=== PATIENT | male | born 1955 | race Caucasian/White ===

== ENCOUNTER → 2017-09-25 | Outpatient (CLI) | payer OTHER | END | disposition home or self-care (01) | LOC: KCIC MRI 15:59 | DX: G20 Parkinson's disease (principal); R41.3 Other amnesia | CPT/HCPCS: 70551 ==

== ENCOUNTER → 2017-11-05 | Outpatient (CLI) | payer OTHER ==
[~2017-11-05] MED LIST: CARB1TAB2 PO; METO25TA4 PO
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
== END | disposition home or self-care (01) ==
LOC: PNCL 12:21
PROVIDERS: ATTEND Anesthesiology
DX: M79.604 Pain in right leg (principal); M54.5 Low back pain; M19.90 Unspecified osteoarthritis, unspecified site; I38 Endocarditis, valve unspecified; Z95.2 Presence of prosthetic heart valve
CPT/HCPCS: G0463

== ENCOUNTER → 2017-11-07 | Outpatient (CLI) | payer OTHER ==
[~2017-11-07] MED LIST changes: +REGADENOSON 0.4 MG/5 ML DISP.SYRIN. IV ONE
--- NOTE | 2017-11-07 09:40 | CARD ---
MR#: [id number] Date of Study: 11/07/2017 Ordering Physician: LULU DELGADO, Referring Physician: LULU DELGADO, Tech: Melody Dominguez APPROVED REPORT EXAM: Two-dimensional and M-mode echocardiogram with Doppler and color Doppler. Other Information Quality : GoodHR: 39bpm Rhythm : NSR INDICATION AVR December 2010 RISK FACTORS Previous Smoker 2D DIMENSIONS RVDd2.7 (2.9-3.5cm)Left Atrium(2D)4.2 (1.6-4.0cm) IVSd1.1 (0.7-1.1cm)Aortic Root(2D)2.9 (2.0-3.7cm) LVDd5.6 (3.9-5.9cm)LVOT Diameter2.0 (1.8-2.4cm) PWd1.1 (0.7-1.1cm)LVDs3.8 (2.5-4.0cm) FS (%) 32.4 %SV90.7 ml LVEF(%)60.1 (>50%) Aortic Valve AoV Peak Lucas.196.7cm/sAoV VTI53.5cm AO Peak GR.15.5mmHgLVOT Peak Lucas.79.9cm/s AO Mean GR.9mmHgAVA (VMAX)1.30cm2 Mitral Valve MV E Rgtcduie36.6cm/sMV DECEL UKWE466cd MV A Brehkcvf48.1cm/sE/A Ratio2.4 Pulmonary Valve PV Peak Ihzvgttz49.0cm/s Tricuspid Valve TR P. Hofnnpjw443uf/sRAP HZBABDCX7mcUh TR Peak Gr.69keJxQTGP87nrMp Pulmonary Vein S1 Pbjxsikq99.8cm/sD2 Thhnvyoa25.3cm/s LEFT VENTRICLE The left ventricle is normal size. There is normal left ventricular wall thickness. The left ventricu lar systolic function is normal and the ejection fraction is within normal range. The Ejection Fracti on is 55-60%. There is normal LV segmental wall motion. Transmitral Doppler flow pattern is Grade I-a bnormal relaxation pattern. RIGHT VENTRICLE The right ventricle is normal size. There is normal right ventricular wall thickness. The right ventr icular systolic function is normal. ATRIA The left atrium size is normal. The right atrium size is normal. The interatrial septum is intact wit h no evidence for an atrial septal defect or patent foramen ovale as noted on 2-D or Doppler imaging. AORTIC VALVE Aortic Valve Replacement December 2010. Per patient porcine valve. Doppler and Color Flow revealed no significant aortic regurgitation. MG 9 mmHg. Bioprosthetic AVR appears well seated. No significant s tenosis. MITRAL VALVE The mitral valve is thickened but opens well. There is no mitral valve stenosis. Doppler and Color-fl ow revealed trace mitral regurgitation. TRICUSPID VALVE The tricuspid valve leaflets are thickened , but open well. Doppler and Color Flow revealed trace tri cuspid regurgitation. RVSP 30 mm Hg There is no tricuspid valve stenosis. PULMONIC VALVE Doppler and Color Flow revealed trace pulmonic valvular regurgitation. There is no pulmonic valvular stenosis. GREAT VESSELS The aortic root is normal in size. Normal pulmonary venous flow (Doppler). The IVC is normal in size and collapses >50% with inspiration. PERICARDIAL EFFUSION There is no evidence of significant pericardial effusion. Critical Notification Critical Value: No <Conclusion> The left ventricular systolic function is normal and the ejection fraction is within normal range. Th e Ejection Fraction is 55-60%. There is normal LV segmental wall motion. MG 9 mmHg. Bioprosthetic AVR appears well seated. No significant stenosis. Signed by : Kirit Ahmadi, Electronically Approved : 11/07/2017 09:39:26
--- NOTE | 2017-11-07 13:51 | RAD ---
MR#: [id number] Date of Study: 11/07/2017 Ordering Physician: LULU ALDRICH, Referring Physician: DANUTA OTOOLE Tech: RT Yulia (R) (N) APPROVED REPORT Test Type: Pharmacological Stress Nurse/Tech: Ginna Mascorro RN Test Indications: dyspnea Cardiac History: Aortic valve replacement, x-smoker, CVA Medications: See Electronic Medical Record Medical History: See Electronic Medical Record Resting ECG: SB Resting Heart Rate: 49 bpm Resting Blood Pressure: 104/61mmHg Pretest Chest Pain: None Nurse/Tech Notes patient lethargic. HR low 40's. Spoke with Dr. Aldrich. Exam postponed one hour. Consent: The procedure was explained to the patient in lay terms. Informed consent was witnessed. Chavez eout was entered into [employer]. History and Stress Test performed by Ginna Mascorro RN Pharm. Details Pharmacologic stress testing was performed using 0.4mg per 5ml of regadenoson given intravenously ove r 7-10 seconds. Stress Symptoms dyspnea. no chest pain. Pt tolerated the test well POST EXERCISE Reason for Termination: Infusion complete Max HR: 75 bpm Max Blood Pressure: 111/59mmHg Blood Pressure response to exercise: Normal blood pressure response during stress. Heart Rate response to exercise: normal response Chest Pain: No. Arrhythmia: No. ST Change: No. INTERPRETATION Stress EKG Conclusion: Baseline EKG showed sinus bradycardia. No ischemic changes at peak stress. N o arrhythmias. Imaging Protocol IMAGE PROTOCOL: Rest Tc-99m/stress Tc-99m 1 day Rest: Stress: Viability: Radiopharm.Tc99m WccncuwtbJu80z Sestamibi Dose11.3mCi 34.4mCi Duration 13min. 13min. Img Date 11/07/2017 11/07/2017 Inj-Img Mala49uxm. 60min. Rest Admin Site:IV - Right AntecubitalAdministrator:RT Yulia (R)(N) Stress Admin Site: IV - Right AntecubitalAdministrator: RT Yulia (R)(N) STRESS DATA End Diast. Vol.140.0mlLVEDV index BSA72.0ml End Syst. Vol.57.0mlLVESV index BSA29.0ml Myocardial Pgcr297.0gEject. Mmaoywos85.0% Stress Scores Regional WT3.00Summed WT16.00 Regional WM0.00Summed WM16.00 Study quality was good. Left Ventricular size was Normal at Rest and Stress. Lung uptake was . Left Ventricular ejection fraction is 59%. The rest and stress images show normal perfusion, normal contraction and thickening. LV Perf. Quant 17 Seg. SSS0.00 17 Seg. SRS0.00 17 Seg. SDS0.00 Stress Defect Extent (% LAD)0.00Rest Defect Extent (% LAD)0.00Rev. Defect Extent (% LAD)0.00 Stress Defect Extent (% LCX) 0.00Rest Defect Extent (% LCX)0.00Rev. Defect Extent (% LCX)0.00 Stress Defect Extent (% RCA)0.00Rest Defect Extent (% RCA)0.00Rev. Defect Extent (% RCA)0.00 Stress Defect Extent (% GENESIS)0.00Rest Defect Extent (% GENESIS)0.00Rev. Defect Extent (% GENESIS)0.00 Conclusion 1. Regadenoson cardioisotope stress test did not show any evidence of ischemia or infarct. 2. Normal left ventricular systolic function with ejection fraction calculated at 59%. 3. Low risk for cardiac events. Signed by : Ashwin Egan, Electronically Approved : 11/07/2017 13:51:07
== END | disposition home or self-care (01) ==
LOC: ECHO 07:32
PROVIDERS: ATTEND Internal Medicine Cardiovascular Disease
DX: Z48.812 Encounter for surgical aftercare following surgery on the circulatory system (principal); M19.90 Unspecified osteoarthritis, unspecified site; Z95.2 Presence of prosthetic heart valve; Z87.891 Personal history of nicotine dependence; Z86.73 Personal history of transient ischemic attack (TIA), and cerebral infarction without residual deficits
CPT/HCPCS: 78452; 93017; 93306; 96374; 96375; 96376; A9500; J2785

== ENCOUNTER → 2017-11-19 | Outpatient (CLI) | payer OTHER ==
[~2017-11-19] MED LIST changes: +IOHEXOL 180 MG/ML 10 ML VIAL. ONE; +LIDOCAINE 2% PF 2ML VIAL. ONE; -REGADENOSON 0.4 MG/5 ML DISP.SYRIN. IV ONE; +methylPREDNISolone ACETATE 40 MG/ML VIAL. ONE; +methylPREDNISolone ACETATE 80 MG/ML VIAL. ONE
--- NOTE | 2017-11-20 00:13 | PAIN ---
DATE OF SERVICE: 11/19/2017 PROGRESS NOTE FOR PAIN CLINIC DIAGNOSES: Lumbar radiculopathy with lumbar degenerative disk disease and lumbar spinal stenosis. HISTORY OF PRESENT ILLNESS: The patient is a 62-year-old male who returns for followup status post previous initial evaluation and preauthorization for lumbar epidural steroid injection. The patient has obtained that we would like to proceed today, with still significant pain in the low back and right lower extremity, mostly lateral anterior thigh and anterior medial knee on the right side. The patient reports it is becoming more constant pain, is stabbing, aching, sharp and shooting, rates an 8 on a scale of 10 at its worst, least and average and is an 8 today. The patient reports no new motor or sensory deficits and no new bowel or bladder incontinence or other complaints. PHYSICAL EXAMINATION: VITAL SIGNS: The patient's blood pressure is 113/70, pulse 60, respirations 18, temperature 98.2 degrees Fahrenheit, height is 5 feet 10 inches and weight is 161 pounds. GENERAL: The patient is awake, alert, oriented, appropriate and very pleasant demeanor. HEENT: Head shows normocephalic and atraumatic. Extraocular movements are intact and symmetrical. Oral cavity, mucous membranes are moist and pink. Dentition is intact. NECK: Shows anterior throat supple without palpable lymphadenopathy noted. Swallow reflex symmetrical. CHEST: Shows normal with inspection. Breath sounds clear to auscultation bilaterally. HEART: Shows S1 and S2 clear. No murmurs auscultated. ABDOMEN: Soft, nontender and nondistended. No palpable organomegaly is noted. No rebound or guarding demonstrated. BACK: Shows spine grossly in the midline. Normal appearing thoracic kyphosis and some slight flattening of the lumbar lordotic curvature. Lumbar paraspinous muscle shows symmetrical on inspection, on palpation shows some moderate tenderness but only diffusely bilaterally in the middle and lower distribution of the paraspinous muscles without radiation. The patient has good rotational motion of the lumbar spine both laterally as well as extension and flexion without significant pain reported. EXTREMITIES: The patient's lower extremities showed deep tendon reflexes 1+ in the patellar and tendo calcaneus tendons. Motor exam is strong with approximately 4 on a scale of 5 right dorsiflexion, extension, 5/5 on the left. Peripheral pulses are 1+ posterior tibia. No peripheral edema is noted. Options were discussed with the patient. The patient's old chart was reviewed as well as his current medication regimen updated. Current review of systems updated today as well. We will proceed with a lumbar epidural steroid injection today with fluoroscopic guidance. Risks were again discussed including, but not limited to bleeding, infection, possibility of epidural hematoma, subsequent neurologic compromise, dural puncture, headaches, spinal cord and/or nerve damage, side effects of steroid medication and poor results regarding pain control. The patient understands and wished to proceed. The patient will return to the clinic in approximately 2 weeks for followup, was counseled as to return appointment, activity level and side effects to be aware of. DIAGNOSIS: Lumbar radiculopathy with lumbar degenerative disk disease and lumbar spinal stenosis. PROCEDURE: Lumbar epidural steroid injection, translaminar approach at the L3-L4 level using C-arm fluoroscopic guidance under sterile prep and drape using local anesthetic. MEDICATION INJECTED: A total of 120 mg Depo-Medrol plus 10 mL of preservative-free normal saline and 2 mL of Isovue for contrast. CONDITION AT DISCHARGE: Stable. The patient tolerated the procedure well and had no complications. GRACE KEENE MD DR: LINA/vera JOB#: [id number] / [id number]
== END | disposition home or self-care (01) ==
LOC: PNCL 10:47
PROVIDERS: ATTEND Anesthesiology
DX: M51.16 Intervertebral disc disorders with radiculopathy, lumbar region (principal); M48.061 Spinal stenosis, lumbar region without neurogenic claudication
CPT/HCPCS: 62323; J1030; J1040; J2001; Q9965

== ENCOUNTER → 2017-12-05 | Outpatient (CLI) | payer OTHER ==
[~2017-12-05] MED LIST changes: -IOHEXOL 180 MG/ML 10 ML VIAL. ONE; -LIDOCAINE 2% PF 2ML VIAL. ONE; -methylPREDNISolone ACETATE 40 MG/ML VIAL. ONE; -methylPREDNISolone ACETATE 80 MG/ML VIAL. ONE
--- NOTE | 2017-12-06 05:10 | PAIN ---
DATE OF SERVICE: 12/05/2017 DIAGNOSES: Lumbar radiculopathy with lumbar spinal stenosis and lumbar degenerative disk disease. HISTORY OF PRESENT ILLNESS: The patient is a 62-year-old male who returns for followup status post lumbar epidural steroid injection x 1. The patient returns reporting about 60% improvement in the low back and left lower extremity, still with significant pain radiating in the lower extremities. Initially, the right side was worse, but now the right side is getting much better. The patient reports it is about 90% better, but the left side is still significantly only about 30% overall in the left leg, but overall about 60% total for about the first 2-1/2 weeks since his injection. The patient reports the pain is still across the low back into the posterior gluteus, posterior thigh and lateral anterior thigh, anterior medial thigh and medial knee, again more on the left side now than the right. The patient reports it is sharp, shooting, cramping, stabbing, becoming more constant, more severe with time, worse with walking, standing and change in positions. If he was sitting for more than about 20-30 minutes, the pain would return. Better with lying down, does not awaken him from sleep at night. The patient reports his pain is 9 on a scale of 10 is worst, 8 on average and 7 at its least and is a 7 today. The patient reports no new motor or sensory deficits. No new bowel or bladder incontinence. Initially, he was getting around better, walking better, doing activities at home better and traveling with much greater ease and comfort, but now the pain is returning as noted. Again, the right leg is doing much better, but the left leg is still with significant pain mostly in the anterior thigh, posterior gluteus, anterior medial at his thigh and medial knee in L3-L4 dermatomal distribution. PHYSICAL EXAMINATION: VITAL SIGNS: Blood pressure 113/75, pulse 67, respirations are 18, temperature is 96.3 degrees Fahrenheit, height is 5 feet 10 inches and weight is 165 pounds. General: He is awake, alert, oriented, appropriate and very pleasant demeanor. HEENT: Head shows normocephalic and atraumatic. Extraocular movements are intact and symmetrical. Oral cavity: Mucous membranes moist and pink. Dentition is intact. NECK: Shows anterior throat supple without palpable lymphadenopathy noted. Swallow reflex symmetrical. CHEST: Shows normal with inspection. Breath sounds clear to auscultation bilaterally. HEART: Shows S1 and S2 clear. No murmurs auscultated. ABDOMEN: Soft, nontender and nondistended. No palpable organomegaly is noted. No rebound or guarding demonstrated. BACK: The patient's back shows spine grossly in the midline. Slight exaggeration of thoracic kyphosis and minor flattening of lumbar lordotic curvature. Lumbar paraspinous muscle shows symmetrical on inspection. On palpation, shows some moderate tenderness diffusely, but without radiation. No tenderness over the sacrum or sacroiliac regions. LOWER EXTREMITIES: Show deep tendon reflexes 1+ patellar and tendo-calcaneus tendons. Motor exam is approximately 4 on a scale of 5 at the ankles bilaterally and 5/5 with quadriceps and hamstring flexion bilaterally. Peripheral pulses are 1+ posterior tibia. No peripheral edema is noted. Options were discussed with the patient. The patient's old chart was reviewed as well as his current medication regimen updated. Current review of systems updated today as well and we will preauthorize for a second lumbar epidural steroid injections as he was doing better after his first injection by about 60% overall. Note, the pain in the right side much better, but the left side is still significantly painful in an L3-L4 dermatomal distribution. With continued therapy and exercises, we will encourage him to maintain his exercises as he has been doing stretching especially and we will have him return for second lumbar epidural steroid injection once that is improved. GRACE KEENE MD DR: LINA/vera JOB#: [id number] / [id number]
== END | disposition home or self-care (01) ==
LOC: PNCL 13:50
PROVIDERS: ATTEND Anesthesiology
DX: M51.16 Intervertebral disc disorders with radiculopathy, lumbar region (principal); M48.061 Spinal stenosis, lumbar region without neurogenic claudication
CPT/HCPCS: 99212

== ENCOUNTER → 2017-12-17 | Outpatient (CLI) | payer OTHER ==
[~2017-12-17] MED LIST changes: +IOHEXOL 180 MG/ML 10 ML VIAL. ONE; +LIDOCAINE 1% PF 2 ML VIAL. ONE; +methylPREDNISolone ACETATE 40 MG/ML VIAL. ONE; +methylPREDNISolone ACETATE 80 MG/ML VIAL. ONE
--- NOTE | 2017-12-17 19:43 | PAIN ---
DATE OF SERVICE: 12/17/2017 DIAGNOSES: Lumbar radiculopathy with lumbar spinal stenosis, lumbar degenerative disk disease. HISTORY OF PRESENT ILLNESS: The patient is a 62-year-old male who returns for followup status post lumbar epidural steroid injection x 1. The patient did well with his first injection about 60% improvement, now returns after preauthorization for a second injection with pain still complaining the low back and into the left greater than right lower extremity. The patient reports no new motor or sensory deficits, no new bowel or bladder incontinence. The patient reports the pain is a 10 on a scale of 10 at its worst, 8 on average, 7 at its least and is a 7 today. The patient reports it is a stabbing, aching, sharp, shooting, constant, becoming more unbearable, worse with walking, standing, changing positions, better with sitting or lying down, generally does not awaken him from sleep at night, feels better when he is lying down. The patient reports the pain is radiating to the right and left thigh as well as the anterior medial thigh on the left side. PHYSICAL EXAMINATION: VITAL SIGNS: The patient's blood pressure 114/73, pulse is 61, respirations 18, temperature is 97.7 degrees Fahrenheit, height is 5 feet 10 inches, weight 168 pounds. GENERAL: The patient is awake, alert, oriented, appropriate, very pleasant demeanor. HEENT: Head is normocephalic, atraumatic. Extraocular movements intact and symmetrical. Oral cavity: Mucous membranes moist and pink. Dentition is intact. NECK: Shows anterior throat supple without palpable lymphadenopathy noted. Swallow reflex is symmetrical. CHEST: Shows normal with inspection. Breath sounds are clear to auscultation bilaterally. HEART: Shows S1, S2 clear. No murmurs auscultated. ABDOMEN: Soft, nontender, nondistended. No palpable organomegaly is noted. No rebound or guarding demonstrated. BACK: Shows spine grossly in the midline. Normal appearing thoracic kyphosis and lumbar lordotic curvature. Lumbar paraspinous muscle shows symmetrical on inspection. On palpation shows some moderate tenderness diffusely bilaterally, but only diffusely in the low lumbar distribution without radiation. No atrophy, no hypertrophy, no trigger points. The patient has good rotational motion of lumbar spine, both laterally as well as extension and flexion without difficulty. EXTREMITIES: Lower extremities show deep tendon reflexes 1+ in the patellar and tendo calcaneus tendons. Motor exam is strong with approximately 4 on a scale of 5 at the bilateral ankles and 5/5 quadriceps and hamstring flexion and symmetrical. Peripheral pulses are 1+ posterior tibial. No peripheral edema is noted bilaterally. PLAN: Options were discussed with the patient. The patient's old chart reviewed as his current medication regimen updated. Current review of systems updated today as well. We will proceed with a second in the series of lumbar epidural steroid injection today with fluoroscopic guidance. Risks were again discussed including, but not limited to bleeding, infection, possibility of epidural hematoma, subsequent neurological compromise, dural puncture, headaches, spinal cord and/or nerve damage, side effects of steroid medication and poor results regarding pain control. The patient understands and wished to proceed. The patient will return to clinic in approximately 2 weeks for followup. He was counseled on return appointment, activity level and side effects to be aware of. DIAGNOSES: Lumbar radiculopathy with lumbar spinal stenosis, lumbar degenerative disk disease. PROCEDURE: Lumbar epidural steroid injection, translaminar approach at L3-L4 level using C-arm fluoroscopic guidance under sterile prep and drape using local anesthetic. MEDICATION INJECTED: A total of 120 mg Depo-Medrol plus 10 mL of preservative-free normal saline and 2 mL of Isovue for contrast. CONDITION AT DISCHARGE: Stable. The patient tolerated the procedure well, had no complications. GRACE KEENE MD DR: LINA/vera JOB#: [id number] / [id number]
== END | disposition home or self-care (01) ==
LOC: PNCL 07:52
PROVIDERS: ATTEND Anesthesiology
DX: M51.16 Intervertebral disc disorders with radiculopathy, lumbar region (principal); M48.061 Spinal stenosis, lumbar region without neurogenic claudication
CPT/HCPCS: 62323; J1030; J1040; Q9965

== ENCOUNTER → 2017-12-31 | Outpatient (CLI) | payer OTHER ==
[~2017-12-31] MED LIST changes: -IOHEXOL 180 MG/ML 10 ML VIAL. ONE; -LIDOCAINE 1% PF 2 ML VIAL. ONE; -methylPREDNISolone ACETATE 40 MG/ML VIAL. ONE; -methylPREDNISolone ACETATE 80 MG/ML VIAL. ONE
--- NOTE | 2018-01-01 00:05 | PAIN ---
DATE OF SERVICE: 12/31/2017 PROGRESS NOTE FOR PAIN CLINIC DIAGNOSES: Lumbar radiculopathy with lumbar spinal stenosis and lumbar degenerative disk disease. HISTORY OF PRESENT ILLNESS: The patient is a 62-year-old male who returns for followup status post lumbar epidural steroid injection x 2. The patient returns reports about 75% improvement after the last injection lasting for about 3 weeks now. The patient reports he has been returning now, is more like 50% improvement today but for the first 3 weeks, he was doing much better, about 75%. The patient reports he has been walking with greater ease and comfort, standing for greater times, working with greater ability without as much pain in his back and leg. The patient reports the left leg still with some significant radiation into the lateral anterior thigh, lateral anterior medial thigh, medial knee and medial lower leg but again only with extended standing and walking. The patient reports the pain is 8-9 on a scale of 10 at its worst, 6 on average, 5 at its least and is a 5 today. The patient reports it is aching, sharp, tight, shooting, stabbing, cramping, sometimes unbearable but mostly on and off in intensity, better with sitting or lying down. It awakens him from sleep occasionally, about every 5 hours or so at the worst. The patient reports no new motor or sensory deficits and no new bowel or bladder incontinence or other complaints, doing much better and is quite pleased with his progress thus far, but still some significant radicular pain on the left side. PHYSICAL EXAMINATION: VITAL SIGNS: Blood pressure 119/71, pulse 69, respirations 16 and temperature 97.8 degrees Fahrenheit. Height 5 feet 10 inches and weight is 165 pounds. GENERAL: The patient is awake, alert, oriented, appropriate and very pleasant demeanor. HEENT: Head shows normocephalic and atraumatic. Extraocular movements are intact and symmetrical. Oral cavity, mucous membranes are moist and pink. Dentition is intact NECK: Shows anterior throat supple without palpable lymphadenopathy noted. Swallow reflex symmetrical. CHEST: Shows normal on inspection. Breath sounds clear to auscultation bilaterally. HEART: Shows S1 and S2 clear. No murmurs auscultated. ABDOMEN: Soft, nontender and nondistended. No palpable organomegaly is noted. No rebound or guarding demonstrated. BACK: Shows spine grossly in the midline. Normal appearing thoracic kyphosis and some mild flattening of the lumbar lordotic curvature. The patient's lumbar paraspinous muscle shows symmetrical on inspection, with palpation shows some mild tenderness but only diffusely bilaterally without radiation. The patient has good rotational motion of the lumbar spine, both laterally as well as extension and flexion without significant difficulty. EXTREMITIES: The patient's lower extremities show deep tendon reflexes at 1+ in the patellar and tendo-calcaneus tendons. Motor exam is approximately 4 on a scale of 5 but equal and symmetrical in the ankles and 5/5 with quadriceps and hamstring flexion, which are symmetrical. Peripheral pulses are 1+ posterior tibial. No peripheral edema is noted. The patient still has some mild straight leg raise on the left at about 45 degrees, was decreased with knee flexion, right side is negative. The patient shows peripheral pulses are 1+ posterior tibia. No peripheral edema bilaterally. The patient is walking with a slight shuffling gait, appears to favor the left lower extremity only slightly but without any assistive devices to ambulate. Options were discussed with the patient. The patient's old chart was reviewed as well as his current medication regimen updated. Current review of systems updated today as well and we will preauthorize the patient for a third in the series of lumbar epidural steroid injection. He still has some radicular pain in the L3-L4 dermatomal distribution on the left side in a radicular pattern, again significantly improved about 75% for the first 3 weeks after injection with the pain returning now, still to 50% level in the left leg only. We will have him continue to do strengthening and stretching exercises. He is doing daily walking as well as his working activities. We will have him continue with his stretching and walking as best tolerated. We will have him return to the clinic in approximately 1 week and plan on the third lumbar epidural steroid injection at that time. GRACE KEENE MD DR: LINA/vera JOB#: [id number] / [id number]
== END | disposition home or self-care (01) ==
LOC: PNCL 13:26
PROVIDERS: ATTEND Anesthesiology
DX: M51.16 Intervertebral disc disorders with radiculopathy, lumbar region (principal); M48.061 Spinal stenosis, lumbar region without neurogenic claudication
CPT/HCPCS: 99212

== ENCOUNTER → 2018-01-16 | Outpatient (CLI) | payer OTHER ==
[~2018-01-16] MED LIST changes: +IOHEXOL 180 MG/ML 10 ML VIAL. ONE; +methylPREDNISolone ACETATE 40 MG/ML VIAL. ONE; +methylPREDNISolone ACETATE 80 MG/ML VIAL. ONE
--- NOTE | 2018-01-16 23:23 | PAIN ---
DATE OF SERVICE: 01/16/2018 PROGRESS NOTE FOR PAIN CLINIC DIAGNOSES: Lumbar radiculopathy with lumbar spinal stenosis and lumbar degenerative disk disease. HISTORY OF PRESENT ILLNESS: The patient is a 62-year-old male who returns for followup status post lumbar posterior injection x 2. The patient reports about 50% improvement for the first 10 days and then the pain returned in his low back and more into the left lower extremity. The patient reports it is aching, sharp, tight, shooting, stabbing, severe, becoming more unbearable, worse with walking, standing, change in positions, inhibiting his work activities. The patient reports for the first 10 days, he was able to increase the distance walking, work activities and household activities with greater ease and comfort, sleeping well at night. The patient reports it is still better when he is off his feet, sitting or lying down, does not awaken him from sleep still but significant pain in the low back and left leg, mostly in the lateral anterior aspect of the thigh, anterior medial thigh, medial knee and lower leg on the left side. The patient reports it is a 10 on a scale of 10 at its worst, 9-10 on average and a 9 at its least and is a 9 today. The patient reports no new motor or sensory deficits and no new bowel or bladder incontinence or other complaints. PHYSICAL EXAMINATION: VITAL SIGNS: The patient's blood pressure 137/80, pulse 67, respirations 18 and temperature 98.3 degrees Fahrenheit. Height is 5 feet 10 inches and weight is 163 pounds. GENERAL: The patient is awake, alert, oriented, appropriate and very pleasant demeanor. HEENT: Head shows normocephalic and atraumatic. Extraocular movements are intact and symmetrical. Oral cavity: Mucous membranes are moist and pink. Dentition is intact. NECK: Shows anterior throat supple without palpable lymphadenopathy noted. Swallow reflex is symmetrical. CHEST: Shows normal with inspection. Breath sounds clear to auscultation bilaterally. HEART: Shows S1 and S2 clear. No murmurs auscultated. ABDOMEN: Soft, nontender and nondistended. No palpable organomegaly is noted. No rebound or guarding demonstrated. BACK: Shows spine grossly in the midline. Normal appearing thoracic kyphosis and lumbar lordotic curvature is slightly flattened. Lumbar paraspinous musculature shows symmetrical on inspection, with palpation shows some moderate tenderness throughout the upper, middle, lower distribution of the paraspinous muscles but only diffusely without radiation. No tenderness over the sacrum or sacroiliac regions. The patient has good rotational motion of the lumbar spine without difficulty, both laterally as well as extension and flexion. EXTREMITIES: Lower extremities show deep tendon reflexes 1+ in the patellar and tendo-calcaneus tendons. Motor exam is approximately 4 on a scale of 5 with dorsiflexion and extension, 5/5 eith quadriceps and hamstring flexion and symmetrical. Peripheral pulses are 1+ posterior tibia. No peripheral edema is noted bilaterally. Options were discussed with the patient. The patient's old chart was reviewed as well as his current medication regimen updated. Current review of systems updated today as well. We will proceed with a third in the series of lumbar epidural steroid injection today with fluoroscopic guidance. Risks were again discussed including, but not limited to bleeding, infection, possibility of epidural hematoma, subsequent neurologic compromise, dural puncture, headaches, spinal cord and/or nerve damage, side effects of steroid medication and poor results regarding pain control. The patient understands and wished to proceed. The patient will return to the clinic in approximately 2 weeks for followup, was counseled as to return appointment, activity level and side effects to be aware of. DIAGNOSES: Lumbar radiculopathy with lumbar spinal stenosis and lumbar degenerative disk disease. PROCEDURES: Lumbar epidural steroid injection, translaminar approach at the L3-L4 level using C-arm fluoroscopic guidance under sterile prep and drape using local anesthetic. MEDICATIONS INJECTED: A total of 120 mg Depo-Medrol plus 10 mL of preservative-free normal saline and 2 mL of Isovue for contrast. CONDITION AT DISCHARGE: Stable. The patient tolerated the procedure well and had no complications. GRACE KEENE MD DR: LINA/vera JOB#: [id number] / [id number]
== END | disposition home or self-care (01) ==
LOC: PNCL 14:17
PROVIDERS: ATTEND Anesthesiology
DX: M51.16 Intervertebral disc disorders with radiculopathy, lumbar region (principal); M48.061 Spinal stenosis, lumbar region without neurogenic claudication
CPT/HCPCS: 62323; J1030; J1040; Q9965

== ENCOUNTER → 2018-04-09 | Outpatient (CLI) | payer OTHER ==
[~2018-04-09] MED LIST changes: +BUPIVACAINE MPF 0.25% 10 ML VIAL. ONE; -IOHEXOL 180 MG/ML 10 ML VIAL. ONE; -methylPREDNISolone ACETATE 80 MG/ML VIAL. ONE
--- NOTE | 2018-04-09 22:17 | PN ---
DATE: 04/09/2018 PROGRESS NOTE FOR PAIN CLINIC DIAGNOSES: Lumbar radiculopathy with lumbar degenerative disk disease, lumbar spinal stenosis and myofascial pain. SUBJECTIVE: The patient is a 62-year-old male who returns for followup status post lumbar epidural steroid injection x 3. The patient reports about 50% improvement after the last injection, which took several days to start to notice it. The patient reports that the pain is back now, but is now just in the low back, is not radiating to the lower extremity as it was previously, only on the left side. The patient reports it is significantly pain, increased with activities he had been doing at work, especially when he is working with raising items up over his head and when using a broom stick up over his head for extended period of time earlier in the week, which seems to exacerbate the pain significantly on the left side. The patient reports again no radiation of the lower extremities. At this time, the pain in the back has become much more debilitating. The patient reports as a 10 on a scale of 10 at its worst, 9 on average, 7 at its least and 9 today, which is burning, aching, sharp, shooting, stabbing, cramping, becoming more constant, more severe and unbearable. The patient reports no loss of motor function. No bowel or bladder incontinence. Wakes him from sleep occasionally, but not most nights. PHYSICAL EXAMINATION: VITAL SIGNS: The patient's blood pressure 130/86, pulse 75, respirations are 16, temperature is 98.6 degrees Fahrenheit and weight is 177 pounds. GENERAL: The patient is awake, alert, oriented, appropriate, very pleasant demeanor. HEENT: Head is normocephalic and atraumatic. Extraocular muscles are intact and symmetrical. Oral cavity, mucous membranes pink. Dentition is intact. NECK: Shows anterior throat supple without palpable lymphadenopathy noted. Swallow reflex symmetrical. CHEST: Shows normal with inspection. Breath sounds clear to auscultation. HEART: Shows S1 and S2 clear. ABDOMEN: Soft, nontender, nondistended. BACK: Shows spine grossly in the midline. Lumbar paraspinous muscle shows symmetrical, with palpation shows some moderate tenderness and very firm rope-like musculature in the low inferior aspect of the left lumbar paraspinous musculature, which is asymmetric in comparison to the right in this region only, upper and middle distributions are symmetric, but very firm rope-like musculature in the left lower aspect of the lumbar paraspinous muscles, very tender, very firm, consistent with trigger point area musculature without significant radiation, but shows good rotation of motion of lumbar spine, both laterally greater than 10 degrees right and left as well as extension greater than 10 degrees, forward flexion 45 degrees without significant pain reported, but significant pain with palpation over the area of musculature noted. EXTREMITIES: The patient's lower extremities show deep tendon reflexes at 1+ in the patellar and tendo-calcaneus tendons. Motor exam is approximately 4 on a scale of 5 with the ankle and 5/5 with quadriceps and hamstring flexion and extension without deficits. Peripheral pulses are 1+ posterior tibia. Options were discussed with the patient. The patient's old chart was reviewed and his current medication regimen updated. Current review of systems updated today as well. We will proceed with trigger point injections of the left inferior paraspinous musculature in the lumbar distribution. Risks were again discussed including, but not limited to bleeding, infection, possibility of intravascular injection sequelae, spread of local anesthetic and numbness, side effects of steroid medication and poor results regarding pain control. The patient understands and wished to proceed. The patient will return to clinic in approximately 2 weeks for followup, was counseled on return appointment, activity level and side effects to be aware of. DIAGNOSIS: Myofascial pain. PROCEDURE: Trigger point injection, left inferior lumbar paraspinous musculature under sterile prep and drape using local anesthetic. MEDICATION INJECTED: A total of 40 mg Depo-Medrol plus total of 2 mL of 0.25% bupivacaine after negative aspiration. CONDITION AT DISCHARGE: Stable. The patient tolerated the procedure well, had no complications. GRACE KEENE MD DR: LINA/vera JOB#: [id number] / [id number]
== END | disposition home or self-care (01) ==
LOC: PNCL 13:42
PROVIDERS: ATTEND Anesthesiology
DX: M79.18 Myalgia, other site (principal); M51.16 Intervertebral disc disorders with radiculopathy, lumbar region; M48.061 Spinal stenosis, lumbar region without neurogenic claudication
CPT/HCPCS: 20552; J1030; J3490

== ENCOUNTER → 2018-05-08 | Outpatient (CLI) | payer OTHER ==
[~2018-05-08] MED LIST changes: -BUPIVACAINE MPF 0.25% 10 ML VIAL. ONE; +GABA-585 PO; +SERT25TA PO; -methylPREDNISolone ACETATE 40 MG/ML VIAL. ONE
--- NOTE | 2018-05-09 01:28 | PAIN ---
DATE OF SERVICE: 05/08/2018 PROGRESS NOTE FOR PAIN CLINIC DIAGNOSES: 1. Lumbar spinal stenosis, lumbar degenerative disk disease, lumbar spondylosis and lumbosacral spondylosis. 2. Myofascial pain. HISTORY OF PRESENT ILLNESS: The patient is a 63-year-old male who returns for followup status post both lumbar epidural steroid injections and trigger point injections. The patient reports the trigger point injections helped for about 50%, but only for about a week or so after the injection. The patient still has significant pain with axial loading and rotational motion of the lumbar spine to the left side. The patient reports no longer has any pain radiating down the lower extremities, but the pain in the low back, is significant on the left side described as stabbing, aching, sharp, shooting, constant, severe, becoming unbearable, worse with standing, walking, changing positions, causing him significant pain at work for which having to sit down about every 20-30 minutes to rest for 5-10 minutes and then continue, but he is still doing his job duties by his report. The patient reports the pain is a 10 on a scale of 10 at its worst, 9 on average, 7 at its least and is a 7 today. The patient reports no new motor or sensory deficits, no new bowel or bladder incontinence, but less extreme pain with extension of the lumbar spine on the left side and left lateral rotation, but not right or forward flexion. Forward flexion actually decreases the pain to a fair extent. The patient reports it does awaken him from sleep occasionally, but not every night. He was initially walking better with greater distances, doing his job activities, household activities with greater ease and comfort, but again, this is returning at this time. PHYSICAL EXAMINATION: VITAL SIGNS: The patient's blood pressure is 113/69, pulse 64, respirations 18, temperature 98.1 degrees Fahrenheit. Height 5 feet 8 inches, weight 178 pounds. GENERAL: The patient is awake, alert, oriented, appropriate, very pleasant demeanor. HEENT: Head is normocephalic and atraumatic. Extraocular movements are intact and symmetrical. Oral cavity: Mucous membranes moist and pink. Dentition is intact. NECK: Shows anterior throat supple without palpable lymphadenopathy noted. Swallow reflex is symmetrical. CHEST: Shows normal with inspection. Breath sounds clear to auscultation bilaterally. HEART: Shows S1, S2 clear. No murmurs auscultated. ABDOMEN: Soft, nontender, nondistended. No palpable organomegaly is noted. No rebound or guarding demonstrated. BACK: The patient's back shows spine grossly in the midline. Slight exaggeration of thoracic kyphosis and minor flattening of lumbar lordotic curvature. Lumbar paraspinous muscle shows symmetrical on inspection, with palpation shows some moderate tenderness in the left low lumbar distribution compared to the right. No tenderness over the spinous processes, sacrum or sacroiliac regions, however. The patient shows good rotational motion of lumbar spine both laterally greater than 10 degrees with some significant pain reported at 10 degrees on left lateral rotation, also fairly significant and severe pain with extension of the lumbar spine on the left side only in the low back, but not the right, decreased with forward flexion at 45 degrees. EXTREMITIES: The patient's lower extremities show deep tendon reflexes 1+ in the patellar and tendo calcaneus tendons. Motor exam is approximately 4 on a scale of 5 in the ankles bilaterally and 5/5 with quadriceps and hamstring bilaterally. Peripheral pulses are 1+ posterior tibia. No peripheral edema is noted bilaterally. Options were discussed with the patient. The patient's old chart was reviewed as his current medication regimen updated. Current review of systems updated today as well. We will preauthorize the patient for left-sided L4-L5 and L5-S1 facet joint injections as he has significant pain with axial loading, extension of lumbar spine as well as left lateral rotation of the lumbar spine, but not right, without radiation to the lower extremities. The patient will wait for preauthorization and return in approximately 1 week. We will plan on left side at L4-L5 and L5-S1 facet joint injections at that time. The patient also has a paperwork to fill out, which we did for him outlining that he should rest about every 30 minutes off of his feet for 5-10 minutes to sit unless the pain subsides before going on with his work duties. GRACE KEENE MD DR: LINA/vera JOB#: [id number] / [id number]
== END | disposition home or self-care (01) ==
LOC: PNCL 14:00
PROVIDERS: ATTEND Anesthesiology
DX: M48.061 Spinal stenosis, lumbar region without neurogenic claudication (principal); M47.817 Spondylosis without myelopathy or radiculopathy, lumbosacral region; M51.36 Other intervertebral disc degeneration, lumbar region; M79.18 Myalgia, other site
CPT/HCPCS: G0463

== ENCOUNTER → 2018-05-23 | Outpatient (CLI) | payer OTHER ==
[~2018-05-23] MED LIST changes: +BUPIVACAINE MPF 0.25% 10 ML VIAL. ONE; +IOHEXOL 180 MG/ML 10 ML VIAL. ONE; +methylPREDNISolone ACETATE 40 MG/ML VIAL. ONE; +methylPREDNISolone ACETATE 80 MG/ML VIAL. ONE
--- NOTE | 2018-05-24 06:33 | PAIN ---
DATE OF SERVICE: 05/23/2018 Progress Note for Pain Clinic DIAGNOSES: Lumbar spinal stenosis, lumbar degenerative disk disease and lumbar and lumbosacral spondylosis. HISTORY OF PRESENT ILLNESS: The patient is 63-year-old male who returns for followup status post lumbar epidural steroid injections and trigger point injections with good results with about 50% improvement. He is having significant pain in the left side of the low back, worse with sitting and standing, especially with extension of the lumbar spine and axial loading in the low back. The patient reports it is better with lying down, does not awaken him from sleep at night; much worse with walking, standing, bending, stooping, and repetitive motions, especially prolonged standing. The patient reports it is stabbing, aching, sharp, shooting pain that is becoming more constant on the left side. The patient reports it is 9 on a scale of 10 at its worst, 8 on average and 6 at its least and is a 6 today. The patient reports no new motor or sensory deficits, no new bowel or bladder incontinence or other complaints. PHYSICAL EXAMINATION: VITAL SIGNS: Today, the patient's blood pressure is 141/85, pulse 63, respirations are 18, temperature 97.9 degrees Fahrenheit, height is 5 feet 8 inches, weight is 180 pounds. GENERAL: The patient is awake, alert, oriented, appropriate, very pleasant demeanor. HEENT: Head shows normocephalic, atraumatic. Extraocular movements are intact and symmetrical. Oral cavity: Mucous membranes moist and pink. Dentition is intact. NECK: Shows anterior throat supple without palpable lymphadenopathy noted. Swallow reflex symmetrical. CHEST: Shows normal with inspection. Breath sounds clear to auscultation bilaterally. HEART: Shows S1, S2 clear. No murmurs auscultated. ABDOMEN: Soft, nontender, nondistended. No palpable organomegaly is noted. No rebound or guarding demonstrated. BACK: Shows spine grossly in the midline. Slight exaggeration of thoracic kyphosis and minor flattening of lumbar lordotic curvature. Lumbar paraspinous muscle shows symmetrical on inspection, with palpation shows some moderate tenderness, more on the left than the right with palpation in the low lumbar distribution. No tenderness over the spinous processes, sacrum or sacroiliac regions. The patient does show increased pain with left lateral rotation greater than 10 degrees, as well as extension greater than 10 degrees, but not with forward flexion at 45 degrees and also minimal pain with right lateral rotation greater than 10 degrees. EXTREMITIES: The patient's lower extremities show deep tendon reflexes 1+ in the patellar and tendo-calcaneus tendons. Motor exam is approximately 4 on a scale of 5 at the ankles with dorsiflexion, extension bilaterally and 5/5 with quadriceps and hamstring flexion equal bilaterally. Peripheral pulses are 1+, posterior tibial. No peripheral edema is noted. OPTIONS were discussed with the patient. The patient's old chart was reviewed. His current medication regimen updated. Current review of systems updated today as well. We will proceed with left-sided L4-L5 and L5-S1 facet joint injections with fluoroscopic guidance. Risks were again discussed including, but not limited to bleeding, infection, possibility of epidural hematoma and subsequent neurological compromise, dural puncture, headaches, spinal cord and/or nerve damage, side effects of steroid medication and poor results regarding pain control. The patient understands and wished to proceed. The patient will return to clinic in approximately 2 weeks for followup. She was counseled to return appointment, activity level and side effects to be aware of. DIAGNOSES: Lumbar and lumbosacral spondylosis with lumbar spinal stenosis and lumbar degenerative disk disease. PROCEDURES: Lumbar L4-L5 left and L5-S1 facet joint injection using C-arm fluoroscopic guidance under sterile prep and drape using local anesthetic. MEDICATION INJECTED: Total of 120 mg Depo-Medrol plus 2 mL of 0.25% bupivacaine and 2 mL of contrast. CONDITION AT DISCHARGE: Stable. The patient tolerated the procedure well, had no complications. GRACE KEENE MD DR: LINA/vera JOB#: [id number] / [id number]
== END | disposition home or self-care (01) ==
LOC: PNCL 13:52
PROVIDERS: ATTEND Anesthesiology
DX: M47.817 Spondylosis without myelopathy or radiculopathy, lumbosacral region (principal); M48.061 Spinal stenosis, lumbar region without neurogenic claudication; M51.36 Other intervertebral disc degeneration, lumbar region
CPT/HCPCS: 64493; 64494; J1030; J1040; J3490; Q9965

== ENCOUNTER → 2018-06-06 | Outpatient (CLI) | payer OTHER ==
[~2018-06-06] MED LIST changes: -BUPIVACAINE MPF 0.25% 10 ML VIAL. ONE; -IOHEXOL 180 MG/ML 10 ML VIAL. ONE; -methylPREDNISolone ACETATE 40 MG/ML VIAL. ONE; -methylPREDNISolone ACETATE 80 MG/ML VIAL. ONE
--- NOTE | 2018-06-07 08:47 | PAIN ---
DATE OF SERVICE: 06/06/2018 DIAGNOSES: 1. Lumbar radiculopathy with lumbar spinal stenosis, lumbar degenerative disk disease and lumbar and lumbosacral spondylosis. 2. Myofascial pain. HISTORY OF PRESENT ILLNESS: The patient is a 63-year-old male who returns for followup status post left-sided L4-L5 and L5-S1 facet joint injections. The patient reports about 80-90% improvement after the injection for the first week or so. The patient reports that after that the pain is returning, but is now still about 40% improved overall. The patient reports it is much more effective, said he has been off work now and his back has been doing better as well. He is on some FMLA time off right now. Reports that has helped the pain as well. The patient reports the pain is aching and tight still on and off in the low back and the left side only, worse with walking, standing, worse with prolonged sitting, extension of the lumbar spine, especially with axial loading in the low back and extension, better with forward flexion. The patient reports pain is 7 on a scale of 10 at its worst over the past week, 5 on average and a 5 at its least and is a 5 today. The patient reports no new motor or sensory deficit, better with sitting or lying down. He is getting better sleep at night, has been increasing his activity at home with greater ease and comfort, again being off work has helped decreased the pain also. PHYSICAL EXAMINATION: VITAL SIGNS: The patient's blood pressure is 110/68, pulse is 59, respirations are 18, temperature 97.7 degrees Fahrenheit, height 5 feet 8 inches, weight 173 pounds. GENERAL: The patient is awake, alert, oriented, appropriate, very pleasant demeanor. HEENT: Head shows normocephalic, atraumatic. The patient wearing eyeglasses. Extraocular movements are intact and symmetrical. Oral cavity shows mucous membranes moist and pink. Dentition is intact. NECK: Shows anterior throat supple without palpable lymphadenopathy noted. CHEST: Shows normal on inspection. Breath sounds clear to auscultation bilaterally. HEART: Shows S1, S2 clear. No murmurs auscultated. ABDOMEN: Soft, nontender, nondistended. No palpable organomegaly is noted. No rebound or guarding demonstrated. BACK: Shows spine grossly in the midline. Lumbar paraspinous muscle shows symmetrical on inspection. On palpation shows some eymk-my-yoxchykw tenderness, but only diffusely, more in the left than the right to middle and lower distribution of paraspinous muscles. No tenderness over the spinous processes, sacrum or sacroiliac regions. The patient shows good rotational motion of lumbar spine with some moderate tenderness with left lateral rotation past 10 degrees, not with right lateral rotation; however, with extension past 10 degrees significant tenderness in the low back on the left side. This is better and almost completely relieved with forward flexion at 45 degrees. EXTREMITIES: The patient's lower extremities show deep tendon reflexes 1+ in the patellar and tendo calcaneus tendons. Motor exam is approximately 4 on a scale of 5 with dorsiflexion, extension, but equal and symmetrical. Quadriceps and hamstring flexion are 5/5 and symmetrical. Peripheral pulses are 1+ posterior tibial. No peripheral edema is noted bilaterally. Options were discussed with the patient. The patient's old chart was reviewed as his current medication regimen updated. Current review of systems updated today as well. We will preauthorize the patient for a repeat left L4-L5 and L5-S1 medial branch facet blocks as the patient did quite well after the initial injections for about 1 week with about 80% improvement and still exacerbated with axial loading extension of the lumbar spine on the left side. The patient will continue with stretching and strengthening exercises and activity as tolerated in the meantime and we will wait for preauthorization to have him return at that time. GRACE KEENE MD DR: LINA/vera JOB#: [id number] / [id number]
== END | disposition home or self-care (01) ==
LOC: PNCL 13:50
PROVIDERS: ATTEND Anesthesiology
DX: M51.16 Intervertebral disc disorders with radiculopathy, lumbar region (principal); M48.061 Spinal stenosis, lumbar region without neurogenic claudication; M47.817 Spondylosis without myelopathy or radiculopathy, lumbosacral region; M79.18 Myalgia, other site
CPT/HCPCS: G0463

== ENCOUNTER → 2018-06-19 | Outpatient (CLI) | payer OTHER ==
[~2018-06-19] MED LIST changes: +BUPIVACAINE MPF 0.25% 10 ML VIAL. ONE; +IOHEXOL 180 MG/ML 10 ML VIAL. ONE; +methylPREDNISolone ACETATE 40 MG/ML VIAL. ONE; +methylPREDNISolone ACETATE 80 MG/ML VIAL. ONE
--- NOTE | 2018-06-19 23:23 | PAIN ---
DATE OF SERVICE: 06/19/2018 DIAGNOSES: Lumbar degenerative disk disease with lumbar spinal stenosis and lumbar and lumbosacral spondylosis. HISTORY OF PRESENT ILLNESS: The patient is a 63-year-old male who returns for followup status post left-sided L4-L5 and L5-S1 facet joint injection, about 80% improvement initially for about the first week. The patient reports the pain returned and we had preauthorized him for repeat injection today for diagnostic blocks on the left side at L4-L5 and L5-S1. The patient reports he still has significant pain in the low back, worse with standing for prolonged periods. It is much better as he has not been working for the past few weeks. He has disability determination coming up in about 2 weeks. The patient reports the pain is 7 on a scale of 10 at its worst, 6 on average, 3 at its least over the past week and is 3 today. The patient reports it is aching, cramping, stabbing, on and off in intensity, again worse with standing or bending, doing repetitive motions with twisting with his lumbar spine as well as extension. The patient reports no new motor or sensory deficits, no new bowel or bladder incontinence. PHYSICAL EXAMINATION: VITAL SIGNS: The patient's blood pressure is 111/66, pulse is 69, respirations 18, temperature is 97.4 degrees Fahrenheit, height is 5 feet 8 inches, weighs 177 pounds. GENERAL: The patient is awake, alert, oriented, appropriate, very pleasant demeanor. HEENT: Shows normocephalic, atraumatic. Extraocular movements are intact and symmetrical. Oropharynx, mucosa is moist and pink. Dentition is intact. NECK: Shows anterior throat supple without palpable lymphadenopathy noted. Swallow reflex is symmetrical. CHEST: Shows normal on inspection. Breath sounds are clear to auscultation bilaterally. HEART: Shows S1, S2 clear. No murmurs auscultated. ABDOMEN: Soft, nontender, nondistended. No palpable organomegaly is noted. No rebound or guarding demonstrated. BACK: Shows spine grossly in the midline. Normal-appearing thoracic kyphosis, mild flattening of lumbar lordotic curvature. Lumbar paraspinous muscle shows symmetrical on inspection; on palpation shows some moderate tenderness diffusely in the low lumbar distribution, but only diffusely without radiation. The patient shows good rotational motion of lumbar spine with significant pain with left lateral rotation greater than 10 degrees as well as extension and axial loading of the lumbar spine with significant pain in the left side only. Right side is nontender. Good rotation to the right at 10 degrees without pain reported. EXTREMITIES: The patient's lower extremities show deep tendon reflexes at 1+ in the patellar and tendo calcaneus tendons. Motor exam is 4 on a scale of 5 with bilateral ankles and 5/5 in quadriceps, hamstrings bilaterally, but symmetrical. Peripheral pulses are 1+ posterior tibial. No peripheral edema is noted. Options were discussed with the patient. The patient's old chart was reviewed as was his current medication regimen updated. Current review of systems updated today as well. We will proceed with a left-sided L4-L5 and L5-S1 facet joint injections. Risks were again discussed including, but not limited to bleeding, infection, possibility of epidural hematoma and subsequent neurological compromise, dural puncture, headaches, spinal cord and/or nerve damage, side effects of steroid medication, exposure to fluoroscopy and poor results regarding pain control. The patient understands and wished to proceed. The patient will return to clinic in approximately 2 weeks for followup. She was counseled as to return appointment, activity level and side effects to be aware of. DIAGNOSIS: Lumbar and lumbosacral spondylosis. PROCEDURES: Left-sided L4-L5 and L5-S1 facet joint injections using C-arm fluoroscopic guidance under sterile prep and drape using local anesthetic. MEDICATIONS INJECTED: A total of 120 mg of Depo-Medrol plus 2 mL of 0.25% bupivacaine and 1 mL total of contrast. He was discharged in stable condition. The patient tolerated the procedure well, had no complications. GRACE KEENE MD DR: LINA/vera JOB#: [id number] / [id number]
== END | disposition home or self-care (01) ==
LOC: PNCL 09:29
PROVIDERS: ATTEND Anesthesiology
DX: M47.817 Spondylosis without myelopathy or radiculopathy, lumbosacral region (principal); M51.36 Other intervertebral disc degeneration, lumbar region; M48.061 Spinal stenosis, lumbar region without neurogenic claudication
CPT/HCPCS: 64493; 64494; J1030; J1040; J3490; Q9965

== ENCOUNTER → 2018-07-22 | Outpatient (CLI) | payer OTHER ==
[~2018-07-22] MED LIST changes: -BUPIVACAINE MPF 0.25% 10 ML VIAL. ONE; -IOHEXOL 180 MG/ML 10 ML VIAL. ONE; -methylPREDNISolone ACETATE 40 MG/ML VIAL. ONE; -methylPREDNISolone ACETATE 80 MG/ML VIAL. ONE
--- NOTE | 2018-07-23 04:00 | PAIN ---
DATE OF SERVICE: 07/22/2018 PROGRESS NOTE FOR PAIN CLINIC: DIAGNOSES: 1. Lumbar radiculopathy with lumbar spinal stenosis, lumbar and lumbosacral spondylosis. 2. Myofascial pain. HISTORY OF PRESENT ILLNESS: The patient is a 63-year-old who returns for followup status post left-sided facet injections, L4-L5 and L5-S1 median branches for diagnostic purposes. The patient did very well again with an 80% improvement for the first 2 weeks after the injection. The patient reports at that time, the pain returned in the low back, especially on the left side, worse with bending and flexing, stooping, especially extension of the spine and axial loading of the low back on the left. The patient reports his back is sore now. He has been working in the yard, picking up some things throughout the yard, bending and extending repetitively which has increased the pain, but only over the past week or so. The patient reports otherwise he was doing fairly well. He was fairly sore after those injections, last time he reports for the first week, but the pain decreased significantly again about 80% overall. The patient reports it is aching and shooting now across the low back into the posterior spine and hip, but not into the lower extremity significantly. The patient reports no new motor or sensory deficits, no new bowel or bladder incontinence, feels better with sitting or lying down, does not awaken him from sleep frequently, but not every 4-5 hours as he lies on his left side. The patient reports he was walking better, walking more straight, doing activities at home with much greater ease and comfort as well for the first 2 weeks. Now, the pain is returning and the patient reports still the pain has returned, but it is still about 50% improvement overall even after several weeks now. The patient rates his pain is 8 on a scale of 10 at its worst, 6 on average, 4 at its least and is a 6 today. The patient reports no new motor or sensory deficits, no new bowel or bladder incontinence or other complaints. PHYSICAL EXAMINATION: VITAL SIGNS: The patient's blood pressure 115/79, pulse 74, respirations 16, temperature is 97.6 degrees Fahrenheit. Weight is 174 pounds. GENERAL: The patient is awake, alert, oriented, appropriate, very pleasant demeanor. HEENT: Head shows normocephalic, atraumatic. Extraocular movements are intact and symmetrical. Oral cavity: Mucous membranes moist and pink. NECK: Shows anterior throat supple. CHEST: Shows breath sounds clear to auscultation bilaterally. HEART: Shows S1, S2 clear. No murmurs auscultated. ABDOMEN: Soft, nontender, nondistended. BACK: Shows spine grossly in the midline. Lumbar paraspinous muscle shows symmetrical on inspection, with palpation shows some moderate tenderness diffusely in the low lumbar distribution, slightly more on the left than the right, but symmetrical without evidence of atrophy, hypertrophy, no trigger points. The patient has good rotational motion, but with some moderate pain with left lateral rotation greater than 10 degrees, pain free with right lateral rotation. Extension of the spine, however, shows significant pain in the low back on the left side only, but without radiation. This is better with forward flexion, but not completely relieved. EXTREMITIES: The patient's lower extremities show deep tendon reflexes 1+ in the patellar and tendo-calcaneus tendons. Motor exam is approximately 4 on a scale 5 in the ankles and 5/5 with hamstrings and quadriceps bilaterally. Options were discussed with the patient. The patient's old chart was reviewed as his current medication regimen updated. Current review of systems updated today as well. We will preauthorize the patient for radiofrequency ablation as he has had two diagnostic blocks now for facet medial branches with good about 80% improvement each time for the first 2 weeks now, still about 50% improved overall even almost 4 weeks later. The patient would like to proceed with this. We will make arrangements for radiofrequency ablation of the left side at L4-L5 and L5-S1 medial branches after preauthorization. The patient will continue with stretching and strengthening exercises, activity as tolerated and will return as scheduled. GRACE KEENE MD DR: LINA/vera JOB#: [id number] / [id number]
== END | disposition home or self-care (01) ==
LOC: PNCL 09:07
PROVIDERS: ATTEND Anesthesiology
DX: M54.16 Radiculopathy, lumbar region (principal); M48.061 Spinal stenosis, lumbar region without neurogenic claudication; M47.817 Spondylosis without myelopathy or radiculopathy, lumbosacral region
CPT/HCPCS: G0463

== ENCOUNTER → 2018-08-07 | Outpatient (CLI) | payer OTHER ==
[~2018-08-07] MED LIST changes: +BUPIVACAINE MPF 0.25% 10 ML VIAL. ONE; +LIDOCAINE 2% PF 5 ML VIAL. ONE; +SERT50TA8 PO; +methylPREDNISolone ACETATE 40 MG/ML VIAL. ONE; +methylPREDNISolone ACETATE 80 MG/ML VIAL. ONE
--- NOTE | 2018-08-07 23:27 | PAIN ---
DATE OF SERVICE: 08/07/2018 PROGRESS NOTE FOR PAIN CLINIC DIAGNOSES: Lumbar stenosis with lumbar and lumbosacral spondylosis. HISTORY OF PRESENT ILLNESS: The patient is a 63-year-old male who returns for followup status post left-sided L4-L5 and L5-S1 facet joint injections with good results about 80% improvement for the first 2 weeks and then down to about 50% improvement after that. The patient reports still about 50% improvement, but is short-lived as the pain has returned now. His last procedure on 06/19/2018. The patient reports after about 2 weeks the pain began to return and is now fairly significant in the low back on the left side. The patient reports some pain on the right, but mainly on the left side, this has been his main problem. The patient reports the pain is a 10 on a scale of 10 at its worst, 8 on average, 6 at its least and is an 8 today. The patient reports it can be sharp and stabbing and constant, worse with walking and standing, especially with extension of the lumbar spine and axial loading in the low lumbar vertebrae. The patient reports it can shoot across the back, this is mainly staying on the left side, it awakens him from sleep about every 4-5 hours. He has been doing better as he has not been working lately and is waiting for his disability to be determined, but he has felt much better since he is not on his feet all day everyday over the past several weeks. The patient reports no new motor or sensory deficits, no new bowel or bladder incontinence or other complaints. PHYSICAL EXAMINATION: VITAL SIGNS: The patient's blood pressure is 117/67, pulse 64, respirations 20, temperature 97.4 degrees Fahrenheit, and weight is 177 pounds. GENERAL: The patient is awake, alert, oriented, appropriate, very pleasant demeanor. HEENT: Head is normocephalic, atraumatic. Extraocular movements are intact and symmetrical. Oral cavity: Mucous membranes moist and pink. Dentition is intact. NECK: Shows anterior throat supple without palpable lymphadenopathy noted. Swallow reflex is symmetrical. CHEST: Shows normal with inspection. Breath sounds are clear bilaterally. HEART: Shows S1, S2 clear. No murmurs auscultated. ABDOMEN: Soft, nontender, nondistended. BACK: Shows spine grossly in the midline. Slight flattening of the thoracic kyphotic curvature, some minor flattening of lumbar lordotic curvature as well. Lumbar paraspinous muscle shows symmetrical on inspection. On palpation, there is some moderate tenderness diffusely, but only diffusely in the low lumbar distribution bilaterally, left greater than right. The patient has good rotational motion but with some moderate pain with left lateral rotation past 10 degrees on the left side but not to the right. With extension, it shows significant increase in pain on the left side in the low back, is decreased to normal and is completely relieved with forward flexion at 45 degrees, but still described as an achy even with anterior flexion. EXTREMITIES: The patient's lower extremities show deep tendon reflexes at 1+/4 in the patellar and tendo calcaneus tendons. Motor exam is approximately a 4 on a scale of 5 at the ankles bilaterally and 5/5 with quadriceps and hamstring flexion but symmetrical. Peripheral pulses are 1+ posterior tibia. No peripheral edema is noted. ASSESSMENT AND PLAN: Options were discussed with the patient. The patient's old chart reviewed. His current medication regimen updated. Current review of systems updated today as well. We will proceed with radiofrequency ablation of the bilateral medial branches at L4-L5 and L5-S1 with fluoroscopic guidance. Risks were again discussed including, but not limited to bleeding, infection, possibility of epidural hematoma, subsequent neurological compromise, dural punctures, headaches, spinal cord and/or nerve damage, side effects of steroid medication, exposure to fluoroscopy, potential thermal damage to the structures around the medial branches including motor nerves with possible permanent ischemic damage as well as poor results regarding pain control. The patient understands and wished to proceed. The patient will return to clinic in approximately 2 weeks for followup, was counseled on return appointment, activity level and side effects to be aware of. DIAGNOSIS: Lumbar and lumbosacral spondylosis. PROCEDURES: Left-sided L4-L5 and L5-S1 medial branch radiofrequency ablation under sterile prep and drape using local anesthetic using C-arm fluoroscopic guidance, both AP lateral and oblique views with insulated 22-gauge radiofrequency ablation needles with good motor testing without any positive lower extremity motor findings. MEDICATIONS INJECTED: A total of 3 mL of 1% lidocaine after motor testing, but prior to radiofrequency ablation total of 0.25% bupivacaine 3 mL as well, following radiofrequency ablation 1 mL at each level and total of 120 mg Depo-Medrol in 0.25% bupivacaine. Please see radiofrequency flow sheet for levels, times, impedances, temperatures and durations. Condition at discharge is stable. The patient tolerated the procedure well and had no immediate complications. GRACE KEENE MD DR: LINA/vera JOB#: [id number] / [id number]
== END ==
LOC: PNCL 13:22
PROVIDERS: ATTEND Anesthesiology
DX: M47.817 Spondylosis without myelopathy or radiculopathy, lumbosacral region (principal); M48.061 Spinal stenosis, lumbar region without neurogenic claudication
CPT/HCPCS: 64635; 64636; J1030; J1040; J2001; J3490

== ENCOUNTER → 2018-09-09 | Outpatient (CLI) | payer OTHER ==
[~2018-09-09] MED LIST changes: -BUPIVACAINE MPF 0.25% 10 ML VIAL. ONE; -LIDOCAINE 2% PF 5 ML VIAL. ONE; -methylPREDNISolone ACETATE 40 MG/ML VIAL. ONE; -methylPREDNISolone ACETATE 80 MG/ML VIAL. ONE
--- NOTE | 2018-09-10 02:37 | PAIN ---
DATE OF SERVICE: 09/09/2018 PROGRESS NOTE FOR PAIN CLINIC DIAGNOSES: Lumbar radiculopathy with lumbar spinal stenosis, lumbar and lumbosacral spondylosis. HISTORY OF PRESENT ILLNESS: The patient is a 63-year-old male who returns for followup status post radiofrequency ablation of the left L4-L5 and L5-S1 medial branches. The patient reports it is about 70% better since then onto the left side, still has some pain on the right side but it is fairly well controlled. The patient reports it is a stabbing pain, aching and shooting on the right. Left side is doing much better. He has been away from work now for several weeks and his pain has decreased as well without the daily activities of stressful work load on his back. The patient reports he is sleeping well at night, is much better with sitting or lying down. He ____ pain when he is up and active and again, more on the right side, now the left side is feeling better. The patient reports as a 9 on a scale of 10 at its worst, 7 on average, 5 at its least and is a 5 today. The patient reports no new motor or sensory deficits, no new bowel or bladder incontinence or other complaints. PHYSICAL EXAMINATION: VITAL SIGNS: The patient's blood pressure is 112/68, pulse 59, respirations 20, temperature 97.6 degrees Fahrenheit, height is 5 feet 8 inches and weighs 176 pounds. GENERAL: The patient is awake, alert, oriented, appropriate, very pleasant demeanor. HEENT: Head is normocephalic, atraumatic. Extraocular movements are intact and symmetrical. Oral cavity: Mucous membranes moist and pink. Dentition is intact. NECK: Shows anterior throat is supple without palpable lymphadenopathy noted. Swallow reflex symmetrical. CHEST: Shows normal on inspection. Breath sounds clear to auscultation bilaterally. HEART: Shows S1, S2 clear. No murmurs auscultated. ABDOMEN: Soft, nontender and nondistended. BACK: Shows spine grossly in the midline. Normal-appearing thoracic kyphosis. Some minor flattening of the lordotic curvature. Lumbar paraspinous muscle shows symmetrical but somewhat firm and mildly tender with palpation throughout the upper, middle and lower distribution in the paraspinous muscles. The patient shows good rotational motion of lumbar spine, both laterally greater than 10 degrees, with much greater ease and comfort, and on previous exam while rotating to the left as well as extension and axial loading in the lumbar spine, some mild tenderness on the right side, but left side is nontender with exam today. Forward flexion is performed to 45 degrees without significant pain as well. EXTREMITIES: The patient's lower extremities show deep tendon reflexes 1+ in the patellar and tendo-calcaneus tendon. Motor exam is approximately 4 on a scale of 5 at ankles with dorsiflexion and extension and 5/5 with quadriceps and hamstring flexion and symmetrical. Peripheral pulses are 1+ posterior tibia. No peripheral edema is noted. PLAN: Options were discussed with the patient. The patient's old chart was reviewed as his current medication regimen updated. Current review of systems updated today as well. We will hold on any further procedures at this time. The patient was encouraged to increase his activity as tolerated, cautiously with weightbearing and excessive standing, lifting as well with his low back. The patient will follow up at this time on as needed basis. We did discuss possible facet joint injections of the right at L4-L5 and L5-S1 if his symptoms progress or worsen on the right side in the future. GRACE KEENE MD DR: LINA/vera JOB#: [id number] / [id number]
== END | disposition home or self-care (01) ==
LOC: PNCL 10:02
PROVIDERS: ATTEND Anesthesiology
DX: M48.061 Spinal stenosis, lumbar region without neurogenic claudication (principal); M47.26 Other spondylosis with radiculopathy, lumbar region; M47.818 Spondylosis without myelopathy or radiculopathy, sacral and sacrococcygeal region
CPT/HCPCS: G0463